=== PATIENT | female | born 1975 | race Two or more races ===

== ENCOUNTER 2019-06-19 10:01 | Emergency (ER) | payer BC ==
[2019-06-19 10:12] VITALS: BMI 27.8
[2019-06-19 11:20] LABS: HEMATOCRIT 25.6 % (32.4-45.2); HEMOGLOBIN 7.6 GM/dL (10.7-15.3); MCHC 29.5 g/dl (32.0-36.0); MEAN CELL VOLUME 61.4 fl (80-96); MEAN PLT VOLUME 8.7 fl (7.5-11.1); PLATELET COUNT 309 K/MM3 (134-434); RBC 4.18 M/mm3 (3.60-5.2); RDW 21.2 % (11.6-15.6); WHITE BLOOD COUNT 5.4 K/mm3 (4.0-10.0)
[2019-06-19 11:26] LABS: MCH 18.1 pg (25.7-33.7)
[2019-06-19 11:32] LABS: INR 0.97 (0.83-1.09); PROTHROMBIN TIME (PATIENT) 11.5 SEC (9.7-13.0)
--- NOTE | 2019-06-19 11:47 | PDOC ---
History of Present Illness - General Chief Complaint: Abnormal Lab Results (Outside) Stated Complaint: SENT BY PCP Time Seen by Provider: 06/19/19 10:33 - History of Present Illness Initial Comments: 06/19/19 11:46 44f with known history of gastric sleeve, microcytic anemia on iron tablets sent from PCP today for low hemoglobin level (6.4) Patient is not symptomatic, had multiple workup in the past which showed iron deficiency anemia despite being on iron supplementation. Anemia is chronic, as far as 2 years ago. Patient denies fever, chills, n/v/d, fatigue, dizziness or malaise. Past History - Past Medical History Allergies/Adverse Reactions: Allergies Allergy/AdvReac Type Severity Reaction Status Date / Time No Known Allergies Allergy Verified 06/19/19 10:05 Anemia: Yes COPD: No HTN: Yes - Surgical History GI Surgery: Yes - Psycho Social/Smoking Cessation Hx Smoking History: Never smoked Have you smoked in the past 12 months: No Hx Alcohol Use: No Drug/Substance Use Hx: No Review of Systems - Review of Systems Able to Perform ROS?: Yes Is the patient limited Albanian proficient: No Constitutional: No: Symptoms Reported HEENTM: No: Symptoms Reported Respiratory: No: Symptoms reported Cardiac (ROS): No: Symptoms Reported ABD/GI: No: Symptoms Reported : No: Symptoms Reported Musculoskeletal: No: Symptoms Reported Integumentary: No: Symptoms Reported Neurological: No: Symptoms reported All Other Systems: Reviewed and Negative *Physical Exam - Vital Signs Last Vital Signs Temp Pulse Resp BP Pulse Ox 98.4 F 79 18 105/64 100 06/19/19 10:06 06/19/19 10:06 06/19/19 10:06 06/19/19 10:06 06/19/19 10:06 - Physical Exam General Appearance: Yes: Nourished, Appropriately Dressed. No: Apparent Distress HEENT: positive: EOMI, LILA, Normal ENT Inspection Respiratory/Chest: positive: Lungs Clear, Normal Breath Sounds. negative: Chest Tender, Respiratory Distress Cardiovascular: positive: Regular Rhythm, Regular Rate, S1, S2 Gastrointestinal/Abdominal: positive: Normal Bowel Sounds, Flat, Soft. negative : Tender Musculoskeletal: positive: Normal Inspection. negative: CVA Tenderness Extremity: positive: Normal Capillary Refill, Normal Inspection, Normal Range of Motion Integumentary: positive: Normal Color, Dry, Warm Neurologic: positive: Fully Oriented, Alert, Normal Mood/Affect, Normal Response , Motor Strength 11/17 ED Treatment Course - LABORATORY CBC & Chemistry Diagram: 06/19/19 11:05 06/19/19 11:05 - ADDITIONAL ORDERS Additional order review: Laboratory Results 06/19/19 06/19/19 11:05 11:05 PT with INR 11.50 INR 0.97 Stool Occult Blood Negative 06/19/19 11:05 RBC 4.18 MCV 61.4 L MCHC 29.5 L RDW 21.2 H MPV 8.7 Neutrophils % No Result Required. Lymphocytes % No Result Required. Medical Decision Making - Medical Decision Making 06/19/19 12:14 44F with acute on chronic anemia. hgb here is 7.6, no need for transfusion or admission. Spoke to PCP Dr. France Vargas who ask for the patient to follow up in his office. Patient interested in outpatient EPI therapy. OK to dc with follow up, Discharge - Discharge Information Problems reviewed: Yes Clinical Impression/Diagnosis: Microcytic anemia, History of anemia Condition: Improved Disposition: HOME - Admission No - Follow up/Referral - Patient Discharge Instructions Patient Printed Discharge Instructions: DI for Iron Deficiency Anemia-Adult Additional Instructions: Follow up at Dr. Vargas's office, call as soon as discharged to make appointment. Come back to the emergency department for any new, worsening or concerning symptom. - Post Discharge Activity
[2019-06-19 11:49] LABS: ALBUMIN 3.8 g/dl (3.4-5.0); BILIRUBIN,TOTAL 0.4 mg/dL (0.2-1); BLOOD UREA NITROGEN 8.4 mg/dL (7-18); CALCIUM 9.5 mg/dL (8.5-10.1); CREATININE 0.7 mg/dL (0.55-1.3); POTASSIUM 3.6 mmol/L (3.5-5.1); TOT PROT 8.1 g/dl (6.4-8.2)
--- NOTE | 2019-06-19 12:34 | PDOC ---
Documentation entered by Ascencion Leblanc SCRIBE, acting as scribe for Killian Hernandez MD. Killian Hernandez MD: This documentation has been prepared by the Benji carr Daniel, SCRIBE, under my direction and personally reviewed by me in its entirety. I confirm that the documentation accurately reflects all work, treatment, procedures, and medical decision making performed by me. Attending Attestation - Resident Resident Name: Turner Montiel - ED Attending Attestation I have performed the following: I have examined & evaluated the patient, The case was reviewed & discussed with the resident, I agree w/resident's findings & plan, Exceptions are as noted - HPI HPI: 06/19/19 11:01 The patient is a 44 year old female with a past medical history of anemia ( never transfused before) and HTN here today for evaluation of anemia. The patient reports that she had a bariatric surgery 3 years ago at [facility] and has since followed up there once a year. She reports that 3 days she received a call from her surgeon that her lab work showed her to be anemic. She states that she has been feeling weak for about one month, has been lightheaded which is worse with bending over, and has been having palpitations. She also notes that she had some nausea 2 days ago which has since resolved. Patient denies headache. Denies fever, chills. Denies chest pain, shortness of breath. Denies nausea, vomiting, diarrhea, abdominal pain. Allergies: NKA PCP: France Vargas - Physicial Exam PE: 06/19/19 11:01 GENERAL: The patient is awake, alert, and fully oriented, Nontoxic - in no acute distress. HEAD: Normocephalic, atraumatic. EYES: extraocular movements intact, sclera anicteric, conjunctiva clear. ENT: Normal voice, Moist mucous membranes. NECK: Normal range of motion, supple LUNGS: Breath sounds equal, clear to auscultation bilaterally. No wheezes, no rhonchi, no rales. HEART: Regular rate and rhythm, without murmur, rub or gallop. ABDOMEN: Soft, nontender, No guarding, no rebound.No CVA tenderness EXTREMITIES: Normal range of motion, no edema. No cyanosis. No erythema, or tenderness. NEUROLOGICAL: No facial assymetry, Normal speech, PSYCH: Normal mood, normal affect. SKIN: Warm, Dry, normal turgor - Medical Decision Making 06/19/19 10:58 suspect anemia, possibly secndary to iron deficiency, mildly sypmtomatic with lightheaddness and some mild sob will r/o [employer] aguilar recheck blood work pt discused posible EPO rather than tranfusio n- will dw PMD after labs resulted to cnfirm anemnia 06/19/19 12:07 The patient's blood work was reviewed hemoglobin is at her approximate baseline we will defer EPO and transfusion. Case was discussed with Dr. Jaimes will have patient follow with Dr. yanes as an outpatient Patient is amenable to that plan
[2019-06-19 12:49] LABS: ANISOCYTOSIS 2+; PLATELET ESTIMATE NORMAL
[2019-06-19 13:10] VITALS: BP 101/59; PULSE 70; TEMP 98.5
== END 2019-06-19 13:31 | disposition home or self-care (01) ==
LOC: JER 10:01
DX: D50.9 Iron deficiency anemia, unspecified (principal); Z98.84 Bariatric surgery status
CPT/HCPCS: 36415; 71045-TC-FY; 80053; 82272; 85025; 85610; 86850; 86900; 86901; 99283-25

== ENCOUNTER 2023-06-06 09:27 | Emergency (ER) | payer BC ==
[2023-06-06 09:51] VITALS: BP 116/82; PULSE 88; RESP 18; TEMP 98.7; BMI 29.2
[2023-06-06 11:33] LABS: THROAT:GRP A STREP NOT DETECTED (NOTDETECTED)
== END 2023-06-06 12:02 | disposition home or self-care (01) ==
LOC: JERFT 09:27
DX: J02.9 Acute pharyngitis, unspecified (principal); R09.81 Nasal congestion; R05.9 Cough, unspecified; R09.82 Postnasal drip; J00 Acute nasopharyngitis [common cold]; Z20.822 Contact with and (suspected) exposure to COVID-19
CPT/HCPCS: 0241U-QW; 87651; 99283-25